=== PATIENT | male | born 1985 ===

== ENCOUNTER 2016-11-12 19:16 | Emergency (ER) ==
--- NOTE | 2016-11-12 19:44 | ED NURSING NOTES ---
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 Acuity: LEVEL 4. Chief Complaint: DEPRESSION and ANXIETY and MEDICATION REFILL (Steph reports not being able to sleep x 3 days. He says his depression medications are giving him insomnia and chest palpitations. He did speak to his provider at [facility] who prescribed Zoloft and Trazodone (started 2 weeks ago, after he had quit taking them). Steph states he relapsed on drugs about 4-5 weeks ago but reports he is clean now.). Alert. SEPSIS SCREEN: Sepsis Screen: negative. Negative (no infection suspected/documented). --19:29 Kahlil Hutton R.N. 19:17 11/12/16. BP: 144/87 (regular adult cuff) taken on the left arm, via an automated monitor, while lying. HR: 96 (normal rate). RR: 16 (regular, unlabored and normal). O2 saturation: 100% on room air. Temp: 98 F (oral). --19:29 Kahlil Hutton R.N. Weight: 70.3 kg stated. Height/Length: 70 inches Per Patient. BMI: 22.2. --19:27 Kahlil Hutton R.N. Medications TraZODone HCl Oral. --19:27 Kahlil Hutton R.N. Zoloft Oral. --19:27 Kahlil Hutton R.N. Naproxen Oral. --19:27 Kahlil Hutton R.N. Medication/allergy information source: the patient. --19:29 Kahlil Hutton R.N. Allergies No Known Drug Allergy. --20:36 Kahlil Hutton R.N. History Arrived by EMS. Historian: patient. Unaccompanied. Primary physician (Jenifer [facility]). The patient has had anxiety and sleeping difficulties and describes feelings of depression. Admits to having rare auditory hallucinations. Denies having visual hallucinations. SOCIAL HX: Light tobacco smoker (cigarette)- less than 1/2 a pack per day. 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 (Last use of meth/heroine about 4-5 weeks ago, last use marijuana today.). No alcohol use. He has not traveled outside the [place] The patient was not exposed to MRSA. No infectious disease exposure. ( Steph reports he lost his house and girlfriend in [facility] about 1.5 months ago. He was staying with his Mom at her house but was kicked out because they do not want him using marijuana. Steph verbalizes he does not want to be homeless, he says "I am scared, I have never been homeless, I don't want to use meth or heroine anymore, I don't want to relapse."). ABUSE ASSESSMENT: Abuse assessment: The patient was asked "Do you feel safe in your home?" and "Has anyone hurt you or threatened to hurt you?". No report of abuse. SELF HARM ASSESSMENT: A self harm assessment was performed. The patient answered "yes" to the question "Have you recently felt down, depressed, or hopeless?", "Have you noticed less interest or pleasure in doing things?" and "Are you here because you tried to hurt yourself?" and "no" to the question "Do you have thoughts of harming or killing yourself?", "Have you ever tried to hurt yourself before today?", "Have you recently had thoughts about harming or killing others?" and "Do you have any dangerous items in your possession?". FALL RISK ASSESSMENT: Fall risk assessment completed. No fall risk identified. NUTRITIONAL RISK ASSESSMENT: The nutritional risk assessment revealed no deficiencies. FUNCTIONAL ASSESSMENT: Functional assessment: no impairments noted. LEARNING NEEDS ASSESSMENT: The learning needs assessment revealed no barriers. SKIN INTEGRITY ASSESSMENT: Skin integrity risk assessment completed. No skin integrity risk identified. --19:29 Kahlil Hutton R.N. PROBLEMS: Nephrolithiasis. Anxiety Reaction. Depression. --19:27 Kahlil Hutton R.N. Assessment GENERAL / NEURO / PSYCH: Alert. Oriented X 4. Appears anxious. Mariel Coma Scale: 15- eyes open spontaneously (4); best verbal response- oriented x 4 (5); best motor response- obeys commands (6). Patient appears calm and cooperative. RESPIRATORY: Respirations not labored. SKIN: Skin is warm and dry. -- Kahlil Hutton R.N. Interventions ID band on patient. To treatment room. --: Kahlil Hutton R.N. PHYSICAL ASSESSMENT Ambulatory to room. ( PH-Q9 total score: 15 (see medical record) NAEL-7 total score: 19 (see medical record)). GENERAL / NEURO / PSYCH: Alert. Oriented X 4. Appears anxious. [place] Coma Scale: 15- eyes open spontaneously (4); best verbal response- oriented x 4 (5); best motor response- obeys commands (6). Speech within normal limits. Patient's mood/affect appears flat. Poor eye contact. Patient appears calm and cooperative but does not express homicidal thoughts. Denies suicidal thoughts. Mood/affect abnormal (depressed). Patient appears well-nourished and neat and clean. RESPIRATORY: No respiratory distress. Respirations not labored. SKIN: Skin intact. Skin is warm and dry. --20:02 Kahlil Hutton R.N. NURSING PROGRESS NOTES The initial plan of care for this patient has been created This plan of care was discussed with the patient. Reassurance given to the patient. Two patient identifiers checked. Call light placed in reach. Side rails up x 1. Bed placed in lowest position. Brakes of bed on. Patient ready for evaluation- ED physician and REHABILITATION CASE COORDINATOR notified. --19:29 Kahlil Hutton R.N. DISPOSITION / DISCHARGE Departure time: 2016. Condition at departure: stable. The goals identified in the patient's plan of care were met. No learning barriers present. Discharge instructions provided and reviewed with the patient. Patient verbalized understanding. Written instructions provided in Lebanese. ( Gave Steph [facility] intake line phone # and the Crisis Care #. Gave Steph food and gatorade prior to d/c. Told him he can wait in the [place] until he finds a ride or contacts [facility] to prevent him from relapsing with heroine/meth if on the street. He has no questions and voices no concerns at this time.). The patient was discharged by the nurse practitioner. He was discharged home and unaccompanied at time of discharge. He left the Emergency Department ambulatory. MARIEL COMA SCORE: [place] Coma Scale: 15- eyes open spontaneously (4); best verbal response- oriented x 4 (5); best motor response- obeys commands (6). --20:35 Kahlil Hutton R.N. 20:28 11/12/16. BP: 128/70 (regular adult cuff) taken on the left arm, via an automated monitor, while sitting. HR: 93 (normal rate). RR: 14 (regular, unlabored and normal). O2 saturation: 97% on room air. Temp: 98 F (oral). Pain level now: 0/10. --20:35 Kahlil Hutton R.N. Locked/Released at 11/12/2016 20:36 by Kahlil Hutton R.N.
--- NOTE | 2016-11-12 19:44 | ED NURSING NOTES ---
Clinical Report - Nurses [address] [place] [address] 11/12/2016 19:16 Patient: STEPH DRAPER TRIAGE Triage time 19:17. Acuity: LEVEL 4. Chief Complaint: DEPRESSION and ANXIETY and MEDICATION REFILL (Steph reports not being able to sleep x 3 days. He says his depression medications are giving him insomnia and chest palpitations. He did speak to his provider at [facility] who prescribed Zoloft and Trazodone (started 2 weeks ago, after he had quit taking them). Steph states he relapsed on drugs about 4-5 weeks ago but reports he is clean now.). Alert. SEPSIS SCREEN: Sepsis Screen: negative. Negative (no infection suspected/documented). --19:29 Kahlil Hutton R.N. 19:17 11/12/16. BP: 144/87 (regular adult cuff) taken on the left arm, via an automated monitor, while lying. HR: 96 (normal rate). RR: 16 (regular, unlabored and normal). O2 saturation: 100% on room air. Temp: 98 F (oral). --19:29 Kahlil Hutton R.N. Weight: 70.3 kg stated. Height/Length: 70 inches Per Patient. BMI: 22.2. --19:27 Kahlil Hutton R.N. Medications TraZODone HCl Oral. --19:27 Kahlil Hutton R.N. Zoloft Oral. --19:27 Kahlil Hutton R.N. Naproxen Oral. --19:27 Kahlil Hutton R.N. Medication/allergy information source: the patient. --19:29 Kahlil Hutton R.N. Allergies No Known Drug Allergy. --20:36 Kahlil Hutton R.N. History Arrived by EMS. Historian: patient. Unaccompanied. Primary physician (Jenifer Riley [facility]). The patient has had anxiety and sleeping difficulties and describes feelings of depression. Admits to having rare auditory hallucinations. Denies having visual hallucinations. SOCIAL HX: Light tobacco smoker (cigarette)- less than 1/2 a pack per day. 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 (Last use of meth/heroine about 4-5 weeks ago, last use marijuana today.). No alcohol use. He has not traveled outside the [place] The patient was not exposed to MRSA. No infectious disease exposure. ( Steph reports he lost his house and girlfriend in [facility] about 1.5 months ago. He was staying with his Mom at her house but was kicked out because they do not want him using marijuana. Steph verbalizes he does not want to be homeless, he says "I am scared, I have never been homeless, I don't want to use meth or heroine anymore, I don't want to relapse."). ABUSE ASSESSMENT: Abuse assessment: The patient was asked "Do you feel safe in your home?" and "Has anyone hurt you or threatened to hurt you?". No report of abuse. SELF HARM ASSESSMENT: A self harm assessment was performed. The patient answered "yes" to the question "Have you recently felt down, depressed, or hopeless?", "Have you noticed less interest or pleasure in doing things?" and "Are you here because you tried to hurt yourself?" and "no" to the question "Do you have thoughts of harming or killing yourself?", "Have you ever tried to hurt yourself before today?", "Have you recently had thoughts about harming or killing others?" and "Do you have any dangerous items in your possession?". FALL RISK ASSESSMENT: Fall risk assessment completed. No fall risk identified. NUTRITIONAL RISK ASSESSMENT: The nutritional risk assessment revealed no deficiencies. FUNCTIONAL ASSESSMENT: Functional assessment: no impairments noted. LEARNING NEEDS ASSESSMENT: The learning needs assessment revealed no barriers. SKIN INTEGRITY ASSESSMENT: Skin integrity risk assessment completed. No skin integrity risk identified. --19:29 Kahlil Hutton R.N. PROBLEMS: Nephrolithiasis. Anxiety Reaction. Depression. --19:27 Kahlil Hutton R.N. Assessment GENERAL / NEURO / PSYCH: Alert. Oriented X 4. Appears anxious. Mariel Coma Scale: 15- eyes open spontaneously (4); best verbal response- oriented x 4 (5); best motor response- obeys commands (6). Patient appears calm and cooperative. RESPIRATORY: Respirations not labored. SKIN: Skin is warm and dry. -- Kahlil Hutton R.N. Interventions ID band on patient. To treatment room. --: Kahlil Hutton R.N. PHYSICAL ASSESSMENT Ambulatory to room. ( PH-Q9 total score: 15 (see medical record) NAEL-7 total score: 19 (see medical record)). GENERAL / NEURO / PSYCH: Alert. Oriented X 4. Appears anxious. [place] Coma Scale: 15- eyes open spontaneously (4); best verbal response- oriented x 4 (5); best motor response- obeys commands (6). Speech within normal limits. Patient's mood/affect appears flat. Poor eye contact. Patient appears calm and cooperative but does not express homicidal thoughts. Denies suicidal thoughts. Mood/affect abnormal (depressed). Patient appears well-nourished and neat and clean. RESPIRATORY: No respiratory distress. Respirations not labored. SKIN: Skin intact. Skin is warm and dry. --20:02 Kahlil Hutton R.N. NURSING PROGRESS NOTES The initial plan of care for this patient has been created This plan of care was discussed with the patient. Reassurance given to the patient. Two patient identifiers checked. Call light placed in reach. Side rails up x 1. Bed placed in lowest position. Brakes of bed on. Patient ready for evaluation- ED physician and TECHNICIAN [employer] AND MAINTENANCE notified. --19:29 Kahlil Hutton R.N. DISPOSITION / DISCHARGE Departure time: 2016. Condition at departure: stable. The goals identified in the patient's plan of care were met. No learning barriers present. Discharge instructions provided and reviewed with the patient. Patient verbalized understanding. Written instructions provided in Honduran. ( Gave Steph [facility] intake line phone # and the Crisis Care #. Gave Steph food and gatorade prior to d/c. Told him he can wait in the [place] until he finds a ride or contacts [facility] to prevent him from relapsing with heroine/meth if on the street. He has no questions and voices no concerns at this time.). The patient was discharged by the nurse practitioner. He was discharged home and unaccompanied at time of discharge. He left the Emergency Department ambulatory. MARIEL COMA SCORE: [place] Coma Scale: 15- eyes open spontaneously (4); best verbal response- oriented x 4 (5); best motor response- obeys commands (6). --20:35 Kahlil Hutton R.N. 20:28 11/12/16. BP: 128/70 (regular adult cuff) taken on the left arm, via an automated monitor, while sitting. HR: 93 (normal rate). RR: 14 (regular, unlabored and normal). O2 saturation: 97% on room air. Temp: 98 F (oral). Pain level now: 0/10. --20:35 Kahlil Hutton R.N. Locked/Released at 11/12/2016 20:36 by Kahlil Hutton R.N.
--- NOTE | 2016-11-12 19:44 | ED CLINICAL REPORT ---
Clinical Report - Physicians/Mid Levels [facility] [address] [place] [address] 11/12/2016 19:16 Patient: STEPH DRAPER Time Seen: 19:30; upon arrival, initial patient contact, initial documentation. Arrived- By private vehicle. Historian- patient. HISTORY OF PRESENT ILLNESS Chief Complaint: ANXIOUS and DEPRESSED and AUDITORY HALLUCINATIONS. This started about 2 weeks ago. The patient has experienced situational problems. (doesn't think his meds are working, says he felt better the first 3 days he was put on them, and now they don't seem to do much, says he has resorted to street drugs to help him feel better and he doesn't want to use street drugs, was staying at his mom's house, but she kicked him out when she found the drugs, and now he has no where to go, and he is afraid of being homeless). Recent drug use. Has not been sleeping (for 3 days). No suicidal thoughts or self-injury inflicted. He has had hallucinations. The symptoms are described as moderate. No injury is present. Similar symptoms previously: Recent medical care: The patient was seen recently by a health care provider. REVIEW OF SYSTEMS All systems otherwise negative, except as recorded above. PAST HISTORY See nurses notes. ( PROBLEMS: Nephrolithiasis. Anxiety Reaction. Depression. --19:27 Kahlil Hutton, R.N.). SOCIAL HISTORY Light tobacco smoker. Occasional alcohol use. History of heavy IV drug use: heroin, methamphetamines, marijuana. Recently used drugs today. No social support. No place to stay. FAMILY HISTORY Negative. ADDITIONAL NOTES The nursing notes have been reviewed with agreement regarding the chief complaint, HPI, ROS, PMH and patient medications and allergies. PHYSICAL EXAM Vital Signs: 11/12/2016 19:17 BP: 144/87. HR: 96. RR: 16. O2 saturation: 100%. Temp: 98 F. Have been reviewed as normal and appear to be correct. Appearance: Alert. No acute distress. Appearance is normal. Eyes: Pupils equal, round and reactive to light. Neck: Normal inspection. Neck supple. CVS: Normal heart rate and rhythm. Heart sounds normal. Respiratory: Breath sounds normal. Chest nontender. Back: No tenderness. Skin: Skin warm and dry. Normal skin color. Normal skin turgor. Extremities: Extremities exhibit normal ROM. No lower extremity edema. Psych / Neuro: Oriented X 3. Mood and affect normal. Speech normal. Cognition normal. Thought process and content normal. Insight and judgement normal. Cranial nerves normal (as tested). No cerebellar findings. No motor deficit. No sensory deficit. PROGRESS AND PROCEDURES Course of Care: pt denies any thoughts of suicide, or hurting himself or others talked to nurse Guillory, about pt's plan of care, agreed pat was not warranted because pt was not si, or hi, nurse helping pt find place to stay and calling pt's mother 21:02 11/12/16. nurse Guillory telling me pt is in lobby and contacting friends for rides, [facility] will take pt in morning, all arrangements made by nurse and pat. Patient counseled in person regarding the patient's stable condition and diagnosis. Differential Diagnosis: Other possible considerations: depression, anxiety, insomnia, substance abuse, bipolar, si, hi. Above considerations are based on history and physical exam. Differential diagnosis was discussed with patient. Disposition: Discharged home in good and unchanged condition (19:44). Condition: good and stable. 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 No suicidal ideation or suicidal attempt. INSTRUCTIONS Warnings: GENERAL WARNINGS: Return or contact your physician immediately if your condition worsens or changes unexpectedly, if not improving as expected, or if other problems arise. Specifically return if problem worsens. Follow-up: Follow up with your doctor in about three days as needed. Call for an appointment. Summary of care provided to patient. Understanding of the discharge instructions verbalized by patient. (Electronically signed by Aneta Saavedra A.R.N.P. 11/12/2016 21:31)
--- NOTE | 2016-11-12 21:31 | ED MED RECONCILIATION SUMMARY ---
Patient: STEPH DRAPER Medication Reconciliation Report [facility] VisitID: [id number] [address] [place] [address] 31y, M Registration Date/Time: 11/12/2016 Weight: 70.3 kg Height/Length: 70 in. BMI: 22.2 ALLERGIES: No Known Drug Allergy The patient's Home Medications are listed below: THE FOLLOWING MEDICATIONS NEED TO BE RECONCILED: Naproxen Oral TraZODone HCl Oral Zoloft Oral The source(s) of the original Home Medication information: patient The following Medications were given to the patient in the Emergency Department: None. The following Medications were prescribed to the patient: None.
--- NOTE | 2016-11-12 21:31 | ED MAR SUMMARY ---
..... Medication Administration Record [facility] [address] [place], [place] [id number] Patient: STEPH DRAPER Visit ID: [id number] 31y, M Weight: 70.3 kg Height/Length: 70 in BMI: 22.2 ALLERGIES: No Known Drug Allergy
--- NOTE | 2016-11-12 21:31 | ED MAR SUMMARY ---
..... Medication Administration Record [facility] [address], [place] [id number] Patient: STEPH DRAPER Visit ID: [id number] 31y, M Weight: 70.3 kg Height/Length: 70 in BMI: 22.2 ALLERGIES: No Known Drug Allergy
--- NOTE | 2016-11-12 21:31 | ED MED RECONCILIATION SUMMARY ---
Patient: STEPH DRAPER Medication Reconciliation Report [facility] VisitID: [id number] [address] [place] [address] 31y, M Registration Date/Time: 11/12/2016 Weight: 70.3 kg Height/Length: 70 in. BMI: 22.2 ALLERGIES: No Known Drug Allergy The patient's Home Medications are listed below: THE FOLLOWING MEDICATIONS NEED TO BE RECONCILED: Naproxen Oral TraZODone HCl Oral Zoloft Oral The source(s) of the original Home Medication information: patient The following Medications were given to the patient in the Emergency Department: None. The following Medications were prescribed to the patient: None.
--- NOTE | 2016-11-12 21:31 | ED DISCHARGE INSTRUCTIONS ---
Patient: STEPH DRAPER General Instructions [facility] VisitID: [id number] [place] [address] 31y, M Registration Date/Time: 11/12/2016 Recurrent mild major depressive disorder without psychosis. No suicidal ideation or suicidal attempt. INSTRUCTIONS Warnings: GENERAL WARNINGS: Return or contact your physician immediately if your condition worsens or changes unexpectedly, if not improving as expected, or if other problems arise. Specifically return if problem worsens. Follow-up: Follow up with your doctor in about three days as needed. Call for an appointment. Summary of care provided to patient. Understanding of the discharge instructions verbalized by patient. ADDITIONAL INFORMATION Depression Depression is one of the most common mental health problems today. It is not just a state of unhappiness or sadness. It is a true disease. The cause seems to be related to a decrease in chemicals that transmit signals in the brain. Having a family history of depression, alcoholism or suicide increases the risk. Chronic illness, chronic pain, migraine headaches and high emotional stress also increase the risk. Depression can cause many different symptoms, such as: -- Loss of appetite -- Over-eating -- Not being able to sleep -- Sleeping too much -- Tiredness not related to physical exertion -- Restlessness or irritability -- Slowness of movement or speech -- Feeling depressed or withdrawn -- Loss of interest in things you once enjoyed -- Difficulty in concentrating, poor memory, have trouble making decisions -- Thoughts of harming or killing oneself, or thoughts that life is not worth living -- Low self-esteem The best treatment for depression is a combination of medicine and psychotherapy. Antidepressant medicines can reduce suffering and can improve the ability to function during the depressed period. Therapy can offer emotional support and help you understand emotional factors that may be causing the depression. Home Care: 1) Be kind to yourself. Make it a point to do things that you enjoy (gardening, walking in nature, going to a movie, etc.). Reward yourself for small successes. 2) Take care of your physical body. Eat a balanced diet (low in saturated fat and high in fruits and vegetables). Establish an exercise plan at least 3 times a week for 30 minutes. Even mild-moderate exercise (like brisk walking) can make you feel better. 3) Avoid alcohol, which can make depression worse. Follow-Up with your doctor as advised. It is important to keep in contact with a health care provider until your symptoms begin to improve. Get Prompt Medical Attention if any of the following occur: -- Feeling extreme depression, fear, anxiety, or anger toward yourself or others -- Feeling out of control -- Feeling that you may try to harm yourself or another -- Hearing voices that others do not hear -- Seeing things that others do not see -- Cant sleep or eat for 3 days in a row You have been given the following additional information: Depression (Electronically signed by Aneta Saavedra A.R.NSherylPSheryl 11/12/2016 21:31)
== END 2016-11-12 20:17 | disposition home or self-care (01) ==
LOC: ED SRH 19:16
DX: F33.0 Major depressive disorder, recurrent, mild (principal); F15.10 Other stimulant abuse, uncomplicated; F11.10 Opioid abuse, uncomplicated; F17.210 Nicotine dependence, cigarettes, uncomplicated